=== PATIENT | female | born 1960 | race Caucasian/White ===

== ENCOUNTER 2018-08-13 10:59 | Emergency (ER) | payer MEDICARE, OTHER ==
[~2018-08-13] VITALS: Ht 91.4 cm; Wt 78.9 kg
[~2018-08-13 10:59] MED LIST: AMITRIPTYLINE100 MG PO; BACLOFEN10 MG PO; BACTRIM DS TAB1 EACH PO; CEPHALEXIN500 MG PO; CHLORHEXIDINE473 ML MM; CLOPIDOGREL75 MG PO; FAMOTIDINE20 MG PO; FLUTICASONE PRO16 GM NAS; GABAPENTIN300 MG PO; HYDROCODON-ACE1 EAC8 PO; IBUPROFEN400 MG PO; METFORMIN HCL500 MG PO; NORCO 5-325 TA1 EACH PO; PROAIR HFA8.5 GM INH; SERTRALINE HCL100 MG PO; SIMVASTATIN40 MG PO; SPIRIVA18 MCG INH; SYMBICORT 16010.2 GM INH
--- OUTSIDE RECORDS SUMMARY | 2018-08-13 11:04 | XMS ---
PreManage Notification: BABAR CARROLL Security Front Office Associate Events No recent Security Events currently on file CRITERIA MET - [facility] CARE PROVIDERS Dutch Miranda Practicing Dermatologist/Inspector Bicycle 10/02/2009-Current PHONE: [phone] Dutch Miranda Primary Care 10/02/2009-Current PHONE: [phone] NARCISA ALCANTARA MD [facility] Primary Care Current PHONE: [phone] Niyah has no Care Guidelines for this patient. E.D. VISIT COUNT (12 MO.) 1 DAMIÁN Lopez TOTAL 1 NOTE: Visits indicate total known visits. ED/UCC VISIT TRACKING (12 MO.) 08/13/2018 11:00 DAMI[facility]N Simpson [place] TYPE: Emergency COMPLAINT: - COUGH INPATIENT VISIT TRACKING (12 MO.) No inpatient visits to display in this time frame [email or web address]
== END 2018-08-13 11:52 | disposition home or self-care (01) ==
LOC: ED 10:59
DX: R05 Cough (principal)

== ENCOUNTER 2021-06-07 06:19 | Emergency (ER) | payer MEDICARE, OTHER ==
[~2021-06-07] VITALS: Ht 91.4 cm; Wt 78.4 kg
--- OUTSIDE RECORDS SUMMARY | 2021-06-07 06:20 | XMS ---
PreManage Notification: BABAR CARROLL Security Compressor Repairer Events No recent Security Events currently on file CRITERIA MET - [facility] CARE PROVIDERS MARICRUZ Baker [facility] 08/14/2018-Current PHONE: [phone] Caleb Farrell Uppers Edge Burnisher/Call Or Contact Centre Operator 05/09/2021-Current PHONE: [phone] Niyah has no Care Guidelines for this patient. Yohana VISIT COUNT (12 MO.) Jonathan Lopez TOTAL 1 NOTE: Visits indicate total known visits. ED/UCC VISIT TRACKING (12 MO.) 06/07/2021 06:19 DAMI[facility]N Simpson [place] TYPE: Emergency COMPLAINT: - SOB INPATIENT VISIT TRACKING (12 MO.) No inpatient visits to display in this time frame [email or web address]
[2021-06-07] MEDS ORDERED: PREDNISONE20 MG PO (08:05)
[2021-06-07] MEDS ORDERED: VENTOLIN HFA18 GM INH (08:10)
--- NOTE | 2021-06-09 07:38 | EKG ---
[facility] [address] [place], [place] [address] Signed Normal sinus rhythm Nonspecific ST and T wave abnormality Abnormal ECG No previous ECGs available Confirmed by ANGUS MENDIOLA MD ([id number]) on 06/09/2021 7:38:39 AM Electronically Signed By: ANGUS MENDIOLA MD 06/09/21 0738 PATIENT NAME: BABAR CARROLL AYDIN Electrocardiogram DATE OF : 58 PHYSICIAN: ANGUS MENDIOLA MD REPORT #: [id number] REPORT IS CONFIDENTIAL AND NOT TO BE RELEASED WITHOUT AUTHORIZATION
== END 2021-06-07 13:04 | disposition home or self-care (01) ==
LOC: ED 06:19
DX: J44.1 Chronic obstructive pulmonary disease with (acute) exacerbation (principal); F17.200 Nicotine dependence, unspecified, uncomplicated; Z88.5 Allergy status to narcotic agent; Z79.899 Other long term (current) drug therapy; Z79.84 Long term (current) use of oral hypoglycemic drugs; Z20.822 Contact with and (suspected) exposure to COVID-19
CPT/HCPCS: 71045; 80053; 83735; 83880; 84484; 85025; 93005; 93010; 94640; 96374; 99285-25; C9803; J2930; U0003

== ENCOUNTER 2022-03-05 13:25 | Emergency (ER) | payer MEDICARE, OTHER ==
[~2022-03-05] VITALS: Ht 91.4 cm; Wt 75.2 kg
[~2022-03-05 13:25] MED LIST changes: +PREDNISONE20 MG PO; +VENTOLIN HFA18 GM INH
--- OUTSIDE RECORDS SUMMARY | 2022-03-05 13:28 | XMS ---
PreManage Notification: BABAR CARROLL Security Microbiology Supervisor Events No recent Security Events currently on file CRITERIA MET - [facility] CARE PROVIDERS MARICRUZ Baker [facility] 08/14/2018-Current PHONE: [phone] Caleb Farrell Map Mounter/Liquor Bridge Operator 01/07/2022-Current PHONE: [phone] Niyah has no Care Guidelines for this patient. Yohana VISIT COUNT (12 MO.) Arnoldo Lopez TOTAL 2 NOTE: Visits indicate total known visits. ED/UCC VISIT TRACKING (12 MO.) 03/05/2022 13:27 DAMI[facility]N Simpson [place] TYPE: Emergency COMPLAINT: - LOW O2 SATS, COUGH W/BACK/CHEST PAIN 06/07/2021 06:19 DAMI[facility]N Simpson [place] TYPE: Emergency COMPLAINT: - SOB DIAGNOSES: - skilled nursing (current) use of oral hypoglycemic drugs - Nicotine dependence, unspecified, uncomplicated - Allergy status to narcotic agent - Chronic obstructive pulmonary disease with (acute) exacerbation - Shortness of breath - Other nursing home (current) drug therapy INPATIENT VISIT TRACKING (12 MO.) No inpatient visits to display in this time frame [email or web address]
[2022-03-05] MEDS ORDERED: PREDNISONE20 MG PO (17:06)
[2022-03-05] MEDS ORDERED: DOXYCYCLINE HY100 MG PO (17:40)
--- NOTE | 2022-03-05 20:08 | EKG ---
[facility] [address] [place], [place] [address] Signed Normal sinus rhythm Nonspecific ST abnormality Abnormal ECG When compared with ECG of 07-JUN-2021 06:27, No significant change was found Confirmed by ANGUS MENDIOLA MD ([id number]) on 03/05/2022 8:07:55 PM Electronically Signed By: ANGUS MENDIOLA MD 03/05/222007 PATIENT NAME: BABAR CARROLL Electrocardiogram DATE OF : 58 PHYSICIAN: ANGUS MENDIOLA MD REPORT #: [id number] REPORT IS CONFIDENTIAL AND NOT TO BE RELEASED WITHOUT AUTHORIZATION
== END 2022-03-05 18:40 | disposition home or self-care (01) ==
LOC: ED 13:25
DX: J44.1 Chronic obstructive pulmonary disease with (acute) exacerbation (principal); E11.9 Type 2 diabetes mellitus without complications; E78.5 Hyperlipidemia, unspecified; F17.200 Nicotine dependence, unspecified, uncomplicated; Z20.822 Contact with and (suspected) exposure to COVID-19; Z88.5 Allergy status to narcotic agent; Z79.899 Other long term (current) drug therapy; Z79.84 Long term (current) use of oral hypoglycemic drugs
CPT/HCPCS: 36415; 71045; 80053; 83735; 84484; 85025; 87502; 93005; 93010; 94640; 94761; 96374; 99285-25; 99406; A9270; C9803; J2930; U0003

== ENCOUNTER 2022-06-11 15:36 | Emergency (ER) | payer MEDICARE, OTHER ==
[~2022-06-11] VITALS: Ht 91.4 cm; Wt 75.2 kg
[~2022-06-11 15:36] MED LIST changes: +DOXYCYCLINE HY100 MG PO
--- OUTSIDE RECORDS SUMMARY | 2022-06-11 15:38 | XMS ---
PreManage Notification: BABAR CARROLL Security Caser Up Events No recent Security Events currently on file CRITERIA MET - [facility] CARE PROVIDERS MARICRUZ Baker [facility] 08/14/2018-Current PHONE: [phone] Caleb Farrell Cashier Greeter/Riverine Assault Craft Crewman 05/09/2022-Current PHONE: [phone] Niyah has no Care Guidelines for this patient. Yohana VISIT COUNT (12 MO.) Arnoldo Lopez TOTAL 2 NOTE: Visits indicate total known visits. ED/UCC VISIT TRACKING (12 MO.) 06/11/2022 15:[address] [facility] [place] TYPE: Emergency COMPLAINT: - BODY ACHES, DIARRHEA 03/05/2022 13:27 DAMI[facility]N Simpson [place] TYPE: Emergency COMPLAINT: - LOW O2 SATS, COUGH W/BACK/CHEST PAIN DIAGNOSES: - Nicotine dependence, unspecified, uncomplicated - Nicotine dependence, cigarettes, uncomplicated - Chronic obstructive pulmonary disease with (acute) exacerbation - Type 2 diabetes mellitus without complications - terminal system operator (current) use of oral hypoglycemic drugs - Other watermelon inspector (current) drug therapy - Allergy status to narcotic agent - Cough, unspecified - Hyperlipidemia, unspecified - Contact with and (suspected) exposure to COVID-19 INPATIENT VISIT TRACKING (12 MO.) No inpatient visits to display in this time frame [id number]
== END 2022-06-11 17:20 | disposition left against medical advice (07) ==
LOC: ED 15:36
DX: Z53.21 Procedure and treatment not carried out due to patient leaving prior to being seen by health care provider (principal)
CPT/HCPCS: 87502; U0003

== ENCOUNTER 2023-05-10 10:04 | Emergency (ER) | payer MEDICARE, OTHER ==
[~2023-05-10] VITALS: Ht 91.4 cm; Wt 81.8 kg
--- OUTSIDE RECORDS SUMMARY | 2023-05-10 10:07 | XMS ---
PreManage Notification: BABAR CARROLL Security Airplane Designer Events 1 event(s) in the past 18 months Most recent security events: Elopement at [facility] 06/11/2022 15:37 - Patient eloped before treatment completed. - Patient with suicidal and/or homicidal ideations eloped. - Patient eloped with IV in place. Details: Patient LWBS. CRITERIA MET - [facility] CARE PROVIDERS Caleb Farrell Manager Secondary/In Store Banker 04/09/2023-Current PHONE: [phone] MARICRUZ Baker [facility] 08/14/2018-Current PHONE: [phone] -[place]- Dentist: Neuropsychology Medical Consultant [facility] PHONE: [phone] Niyah has no Care Guidelines for this patient. Yohana VISIT COUNT (12 MO.) 2 DAIMÁN Lopez TOTAL 2 NOTE: Visits indicate total known visits. ED/UCC VISIT TRACKING (12 MO.) 05/10/2023 10:04 DAMI[facility]N Simpson [place] TYPE: Emergency COMPLAINT: - STROKE 06/11/2022 15:[address] [facility] [place] TYPE: Emergency COMPLAINT: - BODY ACHES, DIARRHEA DIAGNOSES: - Procedure and treatment not carried out due to patient leaving prior to being seen by health care provider INPATIENT VISIT TRACKING (12 MO.) No inpatient visits to display in this time frame [email or web address]
[2023-05-10 10:16] LABS: BASOPHILS 0.5 % (0-2); EOSINOPHILS 1.8 % (0-6); HEMATOCRIT 41.3 % (35.0-50.0); HEMOGLOBIN 13.1 g/dL (12.0-18.0); LYMPHOCYTES 21.4 % (24-44); MCH 26.8 (27-36); MCHC 31.7 g/dl (30-36); MCV 84.5 fl (81-99); NEUTROPHILS 71.3 % (39-80); PLATELET COUNT 253 K/uL (140-440); RBC 4.88 M/ul (4.3-5.7); RDW 15.4 (10.5-15.0)
[2023-05-10 10:23] LABS: PARTIAL THROMBOPLASTIN TIME 29.5 Sec (22.9-41.3)
[2023-05-10 10:24] LABS: PROTIME 12.7 Sec (11.2-14.2)
[2023-05-10 10:33] LABS: ALBUMIN 3.1 g/dL (3.4-5.0); ALBUMIN/GLOBULIN RATIO 0.72 (1.1-2.4); ANION GAP 14.7 (7-21); BILIRUBIN, TOTAL 0.3 ng/dL (0.2-1.0); BUN/CREATININE RATIO 12.58 (6.0-28.6); CALCIUM 8.3 mg/dL (8.5-10.1); CREATININE, SERUM 1.43 mg/dL (0.55-1.02); POTASSIUM 3.7 mmol/L (3.5-5.1); PROTEIN, TOTAL 7.4 g/dL (6.4-8.2)
[2023-05-10 11:41] LABS: INFLUENZA B NAA NEGATIVE (NEGATIVE); RESPIRATORY SYNCYTIAL VIR NAA NEGATIVE (NEGATIVE)
[2023-05-10 12:36] VITALS: BP 193/110
--- NOTE | 2023-05-10 22:18 | EKG ---
[facility] [address] [facility] [address] [place] [address] Signed Sinus rhythm with premature supraventricular complexes and with occasional premature ventricular complexes Nonspecific ST and T wave abnormality Abnormal ECG When compared with ECG of 05-MAR-2022 13:35, premature ventricular complexes are now present Prolonged QT Confirmed by Jigna Colorado MD () on 05/10/2023 10:18:11 PM Electronically Signed By: JIGNA COLORADO MD 05/10/23 2218 PATIENT NAME: BABAR CARROLL AYDIN Electrocardiogram DATE OF : 58 PHYSICIAN: JIGNA COLORADO MD REPORT #: [id number] REPORT IS CONFIDENTIAL AND NOT TO BE RELEASED WITHOUT AUTHORIZATION
== END 2023-05-10 12:45 | disposition short-term general hospital (02) ==
LOC: ED 10:04
PROVIDERS: Emergency Medicine
DX: I63.02 Cerebral infarction due to thrombosis of basilar artery (principal); R47.81 Slurred speech; I10 Essential (primary) hypertension; J44.9 Chronic obstructive pulmonary disease, unspecified; E11.51 Type 2 diabetes mellitus with diabetic peripheral angiopathy without gangrene; E78.5 Hyperlipidemia, unspecified; F17.200 Nicotine dependence, unspecified, uncomplicated; Z88.5 Allergy status to narcotic agent; Z79.899 Other long term (current) drug therapy; Z79.84 Long term (current) use of oral hypoglycemic drugs; Z20.822 Contact with and (suspected) exposure to COVID-19
CPT/HCPCS: 36415; 70450; 70496; 70498; 71045; 80053; 85025; 85610; 85730; 87502; 93005; 93010; C9803; J3101; J7060; Q9967; U0002

== ENCOUNTER 2023-07-06 18:16 | Emergency (ER) | payer MEDICARE, OTHER ==
[~2023-07-06] VITALS: Ht 91.4 cm; Wt 65.8 kg
--- OUTSIDE RECORDS SUMMARY | 2023-07-06 18:19 | XMS ---
PreManage Notification: BABAR CARROLL Security Paint Spraying Machine Operator Helper Events 1 event(s) in the past 18 months Most recent security events: Elopement at [facility] 06/11/2022 15:37 - Patient eloped with IV in place. - Patient eloped before treatment completed. - Patient with suicidal and/or homicidal ideations eloped. Details: Patient LWBS. CRITERIA MET - [facility] CARE PROVIDERS Caleb Farrell Certified Registered Nurse Anesthetist/Health Care Administrator 06/09/2023-Current PHONE: [phone] MARICRUZ Baker [facility] 08/14/2018-Current PHONE: [phone] -[place]- Dentist: Livestock Yard Supervisor [facility] PHONE: [phone] CAITLIN CAZARES Nurse Practitioner: Current PHONE: [phone] Niyah has no Care Guidelines for this patient. E.DParvin VISIT COUNT (12 MO.) 2 DAMIÁN Lopez TOTAL 2 NOTE: Visits indicate total known visits. 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
[2023-07-06] MEDS ORDERED: BUPROPION HCL100 M1 PO (18:47)
[2023-07-06] MEDS ORDERED: ATORVASTATIN CA80 MG PO (18:47)
[2023-07-06] MEDS ORDERED: INCRUSE ELLI62.5 MCG INH (18:48)
[2023-07-06] MEDS ORDERED: METHIMAZOLE5 MG PO (18:49)
[2023-07-06] MEDS ORDERED: OMEPRAZOLE20 MG PO (18:49)
--- NOTE | 2023-07-06 19:10 | EKG ---
[facility] [address] [place], [place] [address] Signed Normal sinus rhythm ST abnormality: consider ischemia Confirmed by Pete Espino M.D. ([id number]) on 07/06/2023 7:10:15 PM Electronically Signed By: PETE ESPINO 07/06/23 1910 PATIENT NAME: BABAR CARROLL AYDIN Electrocardiogram DATE OF : 58 PHYSICIAN: PETE ESPINO REPORT #: [id number] REPORT IS CONFIDENTIAL AND NOT TO BE RELEASED WITHOUT AUTHORIZATION
[2023-07-06 19:34] LABS: BASOPHILS 1.1 % (0-2); EOSINOPHILS 2.2 % (0-6); HEMATOCRIT 39.1 % (35.0-50.0); HEMOGLOBIN 12.8 g/dL (12.0-18.0); LYMPHOCYTES 18.8 % (24-44); MCH 27.3 (27-36); MCHC 32.7 g/dl (30-36); MCV 83.5 fl (81-99); NEUTROPHILS 70.9 % (39-80); PLATELET COUNT 294 K/uL (140-440); RBC 4.68 M/ul (4.3-5.7); RDW 17.3 (10.5-15.0)
[2023-07-06 19:47] LABS: BILIRUBIN, URINE NEGATIVE (negative); BLOOD/HGB, URINE LARGE (Negative); KETONE, URINE NEGATIVE (Negative); LEUK ESTERASE, URINE NEGATIVE (negative); NITRITE, URINE NEGATIVE (negative)
[2023-07-06 19:54] LABS: ALBUMIN 2.4 g/dL (3.4-5.0); ALBUMIN/GLOBULIN RATIO 0.56 (1.1-2.4); ANION GAP 14.7 (7-21); BILIRUBIN, TOTAL 0.5 ng/dL (0.2-1.0); BUN/CREATININE RATIO 7.93 (6.0-28.6); CALCIUM 9.7 mg/dL (8.5-10.1); CREATININE, SERUM 1.26 mg/dL (0.55-1.02); POTASSIUM 3.7 mmol/L (3.5-5.1); PROTEIN, TOTAL 6.7 g/dL (6.4-8.2)
[2023-07-06 19:55] LABS: BACTERIA, URINE RARE /hpf (negative); CASTS, URINE NONE SEEN \\lpf; CRYSTALS, URINE NONE SEEN (0-1+); EPITHELIAL CELLS, URINE NS /lpf (0-1+); RED BLOOD CELLS, URINE 21-40 /hpf (0-5); WHITE BLOOD CELLS, URINE 0-1 /HPF (0-5)
[2023-07-06 19:56] LABS: COLLECTION TYPE, URINE CLEAN CATCH; REFLEX CULTURE, URINE No (No)
[2023-07-06 20:06] LABS: AMPHETAMINES, URINE NEGATIVE (NEGATIVE); BARBITURATES, URINE NEGATIVE (NEGATIVE); BENZODIAZEPINE, URINE NEGATIVE (NEGATIVE); BUPRENORPHINE, URINE NEGATIVE (NEGATIVE); CANNABINOID, URINE NEGATIVE (NEGATIVE); COCAINE, URINE NEGATIVE (NEGATIVE); ECSTASY, URINE POSITIVE (NEGATIVE); FENTANYL, URINE NEGATIVE (NEGATIVE); METHADONE, URINE NEGATIVE (NEGATIVE); OPIATES, URINE NEGATIVE (NEGATIVE); OXYCODONE, URINE NEGATIVE (NEGATIVE); PHENCYCLIDINE, URINE NEGATIVE (NEGATIVE)
[2023-07-06 21:08] VITALS: BP 112/79
== END 2023-07-06 21:10 | disposition home or self-care (01) ==
LOC: ED 18:16
PROVIDERS: Internal Medicine
DX: R41.82 Altered mental status, unspecified (principal); F32.9 Major depressive disorder, single episode, unspecified; I10 Essential (primary) hypertension; K21.9 Gastro-esophageal reflux disease without esophagitis; Z86.73 Personal history of transient ischemic attack (TIA), and cerebral infarction without residual deficits; J42 Unspecified chronic bronchitis; E78.5 Hyperlipidemia, unspecified; F17.200 Nicotine dependence, unspecified, uncomplicated; Z88.5 Allergy status to narcotic agent; Z79.899 Other long term (current) drug therapy; Z79.51 Long term (current) use of inhaled steroids
CPT/HCPCS: 36415; 51701; 80053; 80307; 81001; 84484; 85025; 93005; 93010; 99285-25

== ENCOUNTER 2023-07-31 14:48 | Emergency (ER) | payer MEDICARE, OTHER ==
[~2023-07-31] VITALS: Ht 91.4 cm; Wt 62.4 kg
[~2023-07-31 14:48] MED LIST changes: +ATORVASTATIN CA80 MG PO; +BUPROPION HCL100 M1 PO; +INCRUSE ELLI62.5 MCG INH; +METHIMAZOLE5 MG PO; +OMEPRAZOLE20 MG PO
--- OUTSIDE RECORDS SUMMARY | 2023-07-31 14:50 | XMS ---
PreManage Notification: BABAR CARROLL Security Spring Clipper Events 1 event(s) in the past 18 months Most recent security events: Elopement at [facility] 06/11/2022 15:37 - Patient eloped with IV in place. - Patient eloped before treatment completed. - Patient with suicidal and/or homicidal ideations eloped. Details: Patient LWBS. CRITERIA MET - PDMP - [facility] - 2 Visits in 30 Days CARE PROVIDERS Caleb Farrell Interactive Media Designer/Wedger And Gluer 06/09/2023-Current PHONE: [phone] MARICRUZ Baker [facility] 08/14/2018-Current PHONE: [phone] -[place]- Dentist: Grid Casting Machine Operator Helper [facility] PHONE: [phone] CAITLIN CAZARES Nurse Practitioner: Current PHONE: [phone] Niyah has no Care Guidelines for this patient. ECynthia. VISIT COUNT (12 MO.) 3 [facility] TOTAL 3 NOTE: Visits indicate total known visits. ED/UCC VISIT TRACKING (12 MO.) 07/31/2023 14:49 DAIMÁN Simpson [place] TYPE: Emergency COMPLAINT: - BLEEDING NOSE 07/06/2023 18:16 DAMI[facility]N Simpson [place] TYPE: Emergency COMPLAINT: - HALLUCINATIONS DIAGNOSES: - Allergy status to narcotic agent - Altered mental status, unspecified - Essential (primary) hypertension - Gastro-esophageal reflux disease without esophagitis - Hyperlipidemia, unspecified - terminal system operator (current) use of inhaled steroids - Major depressive disorder, single episode, unspecified - Nicotine dependence, unspecified, uncomplicated - Other half-way (current) drug therapy - Personal history of transient ischemic attack (TIA), and cerebral infarction without residual deficits - Unspecified chronic bronchitis - Visual hallucinations 05/10/2023 10:04 DAMIÁN Simpson [place] TYPE: Emergency COMPLAINT: - STROKE DIAGNOSES: - Allergy status to narcotic agent - 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 DIAGNOSES: - Acquired [...] specified chronic obstructive pulmonary disease - stroke [id number]
[2023-07-31] MEDS ORDERED: ASPIRIN81 MG PO (15:17)
[2023-07-31] MEDS ORDERED: LIDOCAINE PAIN1 EACH TD (15:18)
[2023-07-31] MEDS ORDERED: GLUCAGON EMERGEN1 MG INJ (15:18)
[2023-07-31] MEDS ORDERED: INCRUSE ELLI62.5 MCG IH (15:19)
[2023-07-31] MEDS ORDERED: CLARITIN10 M2 PO (15:20)
[2023-07-31] MEDS ORDERED: REGLAN10 MG PO (15:20)
[2023-07-31] MEDS ORDERED: XARELTO2.5 MG PO (15:21)
[2023-07-31] MEDS ORDERED: TRANSDERM-SCOP1 EACH TD (15:21)
[2023-07-31] MEDS ORDERED: METHIMAZOLE5 MG PO (15:23)
[2023-07-31 16:05] VITALS: BP 159/100
== END 2023-07-31 16:05 | disposition home or self-care (01) ==
LOC: ED 14:48
DX: R04.0 Epistaxis (principal); F17.200 Nicotine dependence, unspecified, uncomplicated; J44.9 Chronic obstructive pulmonary disease, unspecified; E11.9 Type 2 diabetes mellitus without complications; E78.5 Hyperlipidemia, unspecified; Z79.51 Long term (current) use of inhaled steroids; Z79.84 Long term (current) use of oral hypoglycemic drugs; Z79.01 Long term (current) use of anticoagulants; Z79.899 Other long term (current) drug therapy; Z79.82 Long term (current) use of aspirin; Z88.5 Allergy status to narcotic agent
CPT/HCPCS: 71045

== ENCOUNTER 2023-08-04 17:26 | Emergency (ER) | payer MEDICARE, OTHER ==
[~2023-08-04] VITALS: Ht 91.4 cm; Wt 62.4 kg
[~2023-08-04 17:26] MED LIST changes: +ASPIRIN81 MG PO; +CLARITIN10 M2 PO; +GLUCAGON EMERGEN1 MG INJ; +INCRUSE ELLI62.5 MCG IH; +LIDOCAINE PAIN1 EACH TD; +REGLAN10 MG PO; +TRANSDERM-SCOP1 EACH TD; +XARELTO2.5 MG PO
--- OUTSIDE RECORDS SUMMARY | 2023-08-04 17:29 | XMS ---
PreManage Notification: BABAR CARROLL Security Bacteriologist Medical Events 1 event(s) in the past 18 months Most recent security events: Elopement at [facility] 06/11/2022 15:37 - Patient eloped with IV in place. - Patient eloped before treatment completed. - Patient with suicidal and/or homicidal ideations eloped. Details: Patient LWBS. CRITERIA MET - PDMP - [facility] - 2 Visits in 30 Days CARE PROVIDERS Caleb Farrell Senior Director Of Strategy/Meat Cutter 06/09/2023-Current PHONE: [phone] MARICRUZ Baker [facility] 08/14/2018-Current PHONE: [phone] -[place]- Dentist: Grain Sampler [facility] PHONE: [phone] CAITLIN CAZARES Nurse Practitioner: Current PHONE: [phone] Niyah has no Care Guidelines for this patient. EWilder VISIT COUNT (12 MO.) [address] [facility] [facility] [facility] TOTAL 4 NOTE: Visits indicate total known visits. ED/UCC VISIT TRACKING (12 MO.) 08/04/2023 17:26 DAMIÁN Simpson [place] TYPE: Emergency COMPLAINT: - NOSE BLEED 07/31/2023 14:49 DAMIÁN Simpson [place] TYPE: Emergency COMPLAINT: - BLEEDING NOSE 07/06/2023 18:16 DAMI[facility]N Simpson [place] TYPE: Emergency COMPLAINT: - HALLUCINATIONS DIAGNOSES: - Allergy status to narcotic agent - Altered mental status, unspecified - Essential (primary) hypertension - Gastro-esophageal reflux disease without esophagitis - Hyperlipidemia, unspecified - FDC (current) use of inhaled steroids - Major depressive disorder, single episode, unspecified - Nicotine dependence, unspecified, uncomplicated - Other nursing home (current) drug therapy - Personal history of [...] Essential (primary) hypertension - Hyperlipidemia, unspecified - parts counterman (current) use of oral hypoglycemic drugs - Nicotine dependence, unspecified, uncomplicated - Other regional intermodal truck driver (current) drug therapy - Slurred speech - Type 2 diabetes mellitus with diabetic peripheral angiopathy without gangrene INPATIENT VISIT TRACKING (12 MO.) 05/10/2023 15:14 [facility] TYPE: Neuro Surgery DIAGNOSES: - Acquired absence [...] specified chronic obstructive pulmonary disease - stroke [id number]
[2023-08-04] MEDS ORDERED: OXYMETAZOLINE HCL 15 ML BTL ONE (17:40)
[2023-08-04] MEDS ORDERED: OXYMETAZOLINE HCL 15 ML BTL NAS ONE (17:45)
[2023-08-04] MEDS ORDERED: TRANEXAMIC ACID IN NACL,ISO-OS 1,000 MG/100 ML PIGGYBACK IV ONE (17:45)
[2023-08-04] MEDS ORDERED: BRILINTA90 MG PO (17:48)
[2023-08-04 18:13] LABS: BASOPHILS 0.8 % (0-2); EOSINOPHILS 1.3 % (0-6); HEMATOCRIT 39.9 % (35.0-50.0); MCH 28.3 (27-36); MCHC 32.6 g/dl (30-36); MCV 86.6 fl (81-99); MONOCYTES 6.3 % (0-12); NEUTROPHILS 78.6 % (39-80); PLATELET COUNT 416 K/uL (140-440); RBC 4.61 M/ul (4.3-5.7); RDW 17.8 (10.5-15.0)
[2023-08-04 18:23] LABS: PARTIAL THROMBOPLASTIN TIME 27.7 Sec (22.9-41.3)
[2023-08-04 18:24] LABS: INR 1.06 (0.80-1.30); PROTIME 13.1 Sec (11.2-14.2)
[2023-08-04 18:26] LABS: ALBUMIN 2.6 g/dL (3.4-5.0); ALBUMIN/GLOBULIN RATIO 0.59 (1.1-2.4); ANION GAP 17.6 (7-21); BILIRUBIN, TOTAL 0.6 ng/dL (0.2-1.0); BUN/CREATININE RATIO 14.06 (6.0-28.6); CALCIUM 9.9 mg/dL (8.5-10.1); CREATININE, SERUM 1.28 mg/dL (0.55-1.02); POTASSIUM 3.6 mmol/L (3.5-5.1)
[2023-08-04 19:00] LABS: ABO B; ANTIBODY SCREEN NEGATIVE; RH NEGATIVE
[2023-08-04 20:27] VITALS: BP 135/98
== END 2023-08-04 20:27 | disposition home or self-care (01) ==
LOC: ED 17:26
PROVIDERS: Emergency Medicine
DX: R04.0 Epistaxis (principal); E11.9 Type 2 diabetes mellitus without complications; J42 Unspecified chronic bronchitis; E78.5 Hyperlipidemia, unspecified; F17.200 Nicotine dependence, unspecified, uncomplicated; F32.A Depression, unspecified; Z88.5 Allergy status to narcotic agent; Z79.02 Long term (current) use of antithrombotics/antiplatelets; Z79.51 Long term (current) use of inhaled steroids; Z79.82 Long term (current) use of aspirin; Z79.899 Other long term (current) drug therapy; Z79.01 Long term (current) use of anticoagulants
CPT/HCPCS: 36415; 80053; 85025; 85610; 85730; 86850; 86900; 86901; A9270

== ENCOUNTER 2023-10-11 09:03 | Inpatient (IN) | payer MEDICARE, OTHER ==
[2023-10-11] VITALS (13 sets, daily range): BP systolic 98–119; BP diastolic 62–93
[~2023-10-11] VITALS: Ht 91.4 cm; Wt 55.3 kg
[~2023-10-11 09:03] MED LIST changes: +ADVAIR 500-501 EACH INH; +ALBUTEROL2.5 MG/3 M INH; +BRILINTA90 MG PO; -CLARITIN10 M2 PO; +CLARITIN10 MG PO; +DULCOLAX10 MG PR; +FLEET ENEMA133 ML PR; -GABAPENTIN300 MG PO; +GLUCAGON EMERGEN1 MG IM; -GLUCAGON EMERGEN1 MG INJ; +MILK OF MA400 MG/5 M PO; +MIRALAX17 GM PO; +NEURONTIN100 MG PO; +ONDANSETRON HCL8 MG PO; +ONDANSETRON ODT8 MG PO
--- OUTSIDE RECORDS SUMMARY | 2023-10-11 09:06 | XMS ---
PreManage Notification: BABAR CARROLL Security Tire Buffer Events 1 event(s) in the past 18 months Most recent security events: Elopement at [facility] 06/11/2022 15:37 - Patient eloped with IV in place. - Patient eloped before treatment completed. - Patient with suicidal and/or homicidal ideations eloped. Details: Patient LWBS. CRITERIA MET - 6 ED Visits in 6 Months - [facility] CARE PROVIDERS Caleb Farrell Insurance And Financial Services Agent/Tilt Tray Driver 08/08/2023-Current PHONE: [phone] MARICRUZ Baker [facility] 08/14/2018-Current PHONE: [phone] -[place]- Dentist: Mill Order Scheduler [facility] PHONE: [phone] CAITLIN CAZARES Nurse Practitioner: Current PHONE: [phone] Niyah has no Care Guidelines for this patient. Yohana VISIT COUNT (12 MO.) [address] [facility] [facility] TOTAL 7 NOTE: Visits indicate total known visits. ED/UCC VISIT TRACKING (12 MO.) 10/11/2023 09:04 DAMIÁN [facility] [place] TYPE: Emergency COMPLAINT: - RECTAL BLEEDING 09/10/2023 10:16 DAMI[facility]N Rose [facility] [place] TYPE: Emergency COMPLAINT: - ABDOMINAL PAIN DIAGNOSES: - Allergy status to narcotic agent - Chronic obstructive pulmonary disease, unspecified - microstrategy bi developer (current) use of aspirin - Nausea with vomiting, unspecified - Nicotine dependence, unspecified, uncomplicated - Other breaker machine operator (current) drug therapy - Type 2 diabetes mellitus without complications - Unspecified abdominal pain 08/29/2023 18:13 DAMIÁN Rose [facility] [place] TYPE: Emergency COMPLAINT: - FEVER 08/04/2023 17:26 DAMIÁN Simpson [place] TYPE: Emergency COMPLAINT: - NOSE BLEED DIAGNOSES: - Allergy status to narcotic agent - Depression, unspecified - Epistaxis - Hyperlipidemia, unspecified - prison (current) use of anticoagulants - prison (current) use of antithrombotics/antiplatelets - microstrategy bi developer (current) use of aspirin - prison (current) use of inhaled steroids - Nicotine dependence, unspecified, uncomplicated - Other [facility] (current) drug therapy - Type 2 diabetes mellitus without complications - Unspecified chronic bronchitis 07/31/2023 14:49 DAMIÁN Simpson [place] TYPE: Emergency COMPLAINT: - BLEEDING NOSE DIAGNOSES: - Allergy status to narcotic agent - Chronic obstructive pulmonary disease, unspecified - Epistaxis - Hyperlipidemia, unspecified - microstrategy bi developer (current) use of anticoagulants - prison (current) use of aspirin - microstrategy bi developer (current) use of inhaled steroids - microstrategy bi developer (current) use of oral hypoglycemic drugs - Nicotine dependence, unspecified, uncomplicated - Other mcc (current) drug therapy - Type 2 diabetes mellitus without complications 07/06/2023 18:16 DAMIÁN Simpson [place] TYPE: Emergency COMPLAINT: - HALLUCINATIONS DIAGNOSES: - Allergy status to narcotic agent - Altered mental status, unspecified - Essential (primary) hypertension - Gastro-esophageal reflux disease without esophagitis - Hyperlipidemia, unspecified - microstrategy bi developer (current) use of inhaled steroids - Major depressive disorder, single episode, unspecified - Nicotine dependence, unspecified, uncomplicated - Other breaker machine operator (current) drug therapy - Personal history of [...] Essential (primary) hypertension - Hyperlipidemia, unspecified - microstrategy bi developer (current) use of oral hypoglycemic drugs - Nicotine dependence, unspecified, uncomplicated - Other breaker machine operator (current) drug therapy - Slurred speech - Type 2 diabetes mellitus with diabetic peripheral angiopathy without gangrene INPATIENT VISIT TRACKING (12 MO.) 08/31/2023 08:40 DAMIÁN Simpson [place] TYPE: Medical Surgical COMPLAINT: - UTI DIAGNOSES: - Acquired absence of other specified parts of digestive tract - Acquired absence of other specified parts of digestive tract - Acute respiratory failure with hypoxia - Allergy status to narcotic agent - Allergy status to narcotic agent - Bacteriuria - Bacteriuria - Chronic obstructive pulmonary disease, unspecified - Chronic obstructive pulmonary disease, unspecified - Essential (primary) hypertension - Essential (primary) hypertension - Hyperosmolality and hypernatremia - Hyperosmolality and hypernatremia - Hypokalemia - Hypokalemia - microstrategy bi developer (current) use of aspirin - microstrategy bi developer (current) use of aspirin - microstrategy bi developer (current) use of inhaled steroids - prison (current) use of inhaled steroids - Nicotine dependence, unspecified, uncomplicated - Nicotine dependence, unspecified, uncomplicated - Other mcc (current) drug therapy - Other mcc (current) drug therapy - Personal history of transient ischemic attack (TIA), and cerebral infarction without residual deficits - Personal history of transient ischemic attack (TIA), and cerebral infarction without residual deficits - Sepsis, unspecified organism - Severe sepsis without septic shock - Thyrotoxicosis, unspecified without thyrotoxic crisis or storm - Thyrotoxicosis, unspecified without thyrotoxic crisis or storm - Urinary tract infection, site not specified 05/10/2023 15:14 [facility] [place] TYPE: Neuro Surgery DIAGNOSES: - Acquired [...] specified chronic obstructive pulmonary disease - stroke [id number]
[2023-10-11] MEDS ORDERED: PANTOPRAZOLE SODIUM 40 MG/10 ML VIAL IV ONE (09:15)
[2023-10-11] MEDS ORDERED: ondansetron HCL 4 MG/2 ML VIAL IV ONE (09:15)
[2023-10-11 09:21] LABS: EOSINOPHILS 0.9 % (0-6); HEMATOCRIT 26.9 % (35.0-50.0); HEMOGLOBIN 8.3 g/dL (12.0-18.0); LYMPHOCYTES 10.4 % (24-44); MCH 27.9 (27-36); MCHC 30.9 g/dl (30-36); MCV 90.5 fl (81-99); MONOCYTES 5.3 % (0-12); NEUTROPHILS 82.4 % (39-80); PLATELET COUNT 690 K/uL (140-440); RBC 2.98 M/ul (4.3-5.7); RDW 17.6 (10.5-15.0)
[2023-10-11 09:35] LABS: ALBUMIN/GLOBULIN RATIO 0.51 (1.1-2.4); ANION GAP 12.9 (7-21); BILIRUBIN, TOTAL 0.3 ng/dL (0.2-1.0); BUN/CREATININE RATIO 20.43 (6.0-28.6); CALCIUM 7.9 mg/dL (8.5-10.1); CREATININE, SERUM 0.93 mg/dL (0.55-1.02); POTASSIUM 3.9 mmol/L (3.5-5.1); PROTEIN, TOTAL 5.9 g/dL (6.4-8.2)
[2023-10-11 09:54] LABS: ABO B; ANTIBODY SCREEN NEGATIVE; RH NEGATIVE
[2023-10-11 09:56] LABS: INR 1.06 (0.80-1.30); PROTIME 13.4 Sec (11.2-14.2)
[2023-10-11 09:58] LABS: PARTIAL THROMBOPLASTIN TIME 28.1 Sec (22.9-41.3)
[2023-10-11] MEDS ORDERED: PANTOPRAZOLE SODIUM 40 MG/10 ML VIAL IV SCH (11:26)
[2023-10-11] MEDS ORDERED: SODIUM CHLORIDE 0.9% 1,000 ML IV SCH ×2 (11:30→15:00)
[2023-10-11] MEDS ORDERED: PHARMACY RENAL DOSE ADJUSTMENT 1 DOSE MISC PO SCH (12:00)
[2023-10-11] MEDS ORDERED: TYLENOL325 MG PO (12:50)
[2023-10-11] MEDS ORDERED: ASPIRIN81 MG PO (12:51)
[2023-10-11] MEDS ORDERED: PULMICORT0.5 MG/2 M INH (12:53)
[2023-10-11] MEDS ORDERED: IPRAT-ALBUT 0.5-3 ML INH (12:59)
[2023-10-11] MEDS ORDERED: ONDANSETRON ODT4 MG PO (13:06)
[2023-10-11] MEDS ORDERED: SERTRALINE HCL100 MG PO (13:07)
--- NOTE | 2023-10-11 13:22 | NUR ---
MED REC COMPLETE
--- NOTE | 2023-10-11 13:24 | NUR ---
PATIENT TAKEN TO GI SUITE FOR UPPER ENDOSCOPY AT 1315.
[2023-10-11] MEDS ORDERED: BUPROPION HCL200 MG PO (13:26)
--- NOTE | 2023-10-11 13:26 | CONS ---
[facility] [address] [place], [place] [address] Signed DATE OF CONSULTATION: 10/11/2023 CHIEF COMPLAINT: Hematemesis. HISTORY OF PRESENT ILLNESS: Babar is a 62-year-old female with long history of peripheral arterial disease and coronary artery disease, on both Brilinta and aspirin. She has come in our ER more than once with nosebleeds. On this occasion, she had some coffee-ground hematemesis earlier this [facility] She was brought to the emergency room for evaluation. She has been a little tachycardic, but her blood pressure has been stable. It looks like her hemoglobin dropped over the last month from 12 down to 8.3. Her BUN is only 19. She also was hypoxic in the ER and was placed on oxygen. Nevertheless, I do not see an EKG nor chest x-ray. She is telling me she has nausea and has to use scopolamine patches. She said she has been vomiting almost every meal for a week. We can see that her gallbladder has been removed previously along with her appendix. She has also had an oophorectomy in the past. She does not seem to describe classic small bowel obstruction. There is always the risks, she could have a gastric outlet obstruction. She did undergo a digital rectal exam and the stool was guaiac positive; however, it was brown in color. She has been admitted to our Internal Medicine Service. I have been asked to see her as a local general surgeon for consideration of upper endoscopy. In the meantime, she has been moved down to our ICU. PAST MEDICAL HISTORY: Peripheral arterial disease, coronary artery disease, COPD, diabetes, chronic bronchitis, hyperlipidemia, depression, thrombotic stroke, thyrotoxicosis, and nosebleeds. PAST SURGICAL HISTORY: Includes bilateral lower extremity amputations, cholecystectomy, appendectomy, and oophorectomy. SOCIAL HISTORY: She quit smoking about a year ago. She does not drink. She has been 12 years at [facility], but now has been transferred to [facility] I believe for higher level of care. Dr. Narcisa Alcantara is her primary care provider in [place], [place]. The extended care facility uses [facility]. Autumn is her friend at . FAMILY HISTORY: She is not aware of any family history. REVIEW OF SYSTEMS: Electronically Signed By: SAMANTHA HIGHTOWER MD 10/11/23 1326 PATIENT NAME: BABAR CARROLL CONSULTATION DATE OF : 58 REPORT #: [id number] PHYSICIAN: SAMANTHA HIGHTOWER MD PCP: NARCISA ALCANTARA MD REPORT IS CONFIDENTIAL AND NOT TO BE RELEASED WITHOUT AUTHORIZATION [facility] [address] [place], [place] [address] Signed We reviewed 10 systems with her and there is no metal in her body and no new additions. ALLERGIES: Morphine causes agitation. MEDICATIONS: Dulcolax, Fleet Enema, milk of magnesia, polyethylene glycol, Zofran, gabapentin, fluticasone, bupropion, atorvastatin, Incruse, omeprazole, aspirin, glucagon, lidocaine, loratadine, Reglan, scopolamine patches, methimazole, Brilinta, Advair, and albuterol. PHYSICAL EXAMINATION: VITAL SIGNS: Her blood pressure is 104/58, heart rate is 105, respiratory rate 18, temperature is 98.1, and she is 100% on room air. Currently, she is 3 feet tall because of amputations. Her weight is 57 kg and a body mass index is falsely high at 69 because of amputations. GENERAL: Babar is a 62-year-old female, lying supine in her ICU bed. Our nurses with this. She is in no acute distress. She is edentulous. She constantly moves her head about and her lips and a little bit difficult to hear her speech. LUNGS: Clear to auscultation bilaterally. She is a little tachycardic without murmur. ABDOMEN: Soft, nontender. RECTAL: Not repeated. LABORATORY DATA: Her white blood count is 10.5 and hemoglobin is 12, it is down to 8.3 over the course of a month or so. Her BUN is only a little high at 19, creatinine is good at 0.93. INR is 1.06, alkaline phosphatase is 138, and albumin is 2.0. IMAGING DATA: EKG is pending. RADIOGRAPHIC STUDIES: Chest x-ray is pending. ASSESSMENT/PLAN: Babar is a 62-year-old female on two anti-platelet drugs for history of vascular disease. She has been with several nosebleeds. She has chronic nausea apparently and has to use scopolamine. She said she has been vomiting for a week with almost every meal. She finally had some coffee-ground hematemesis. She has been admitted to the Internal Medicine Service. I have been asked to see her as a general surgeon on-call. I met with Babar and she tells me she has never had upper or lower endoscopy. I reviewed upper endoscopy with her in detail. There is risk including, but not limited to gas bloating, crampy abdominal pain, bleeding, perforation requiring surgery, and missed diagnosis. We also reviewed the need for monitored anesthesia care given her age and advanced medical issues and her current situation. She has expressed understanding Electronically Signed By: SAMANTHA HIGHTOWER MD 10/11/23 8580 PATIENT NAME: BABAR CARROLL CONSULTATION DATE OF : 58 REPORT #: [id number] PHYSICIAN: SAMANTHA HIGHTOWER MD PCP: NARCISA ALCANTARA MD REPORT IS CONFIDENTIAL AND NOT TO BE RELEASED WITHOUT AUTHORIZATION [facility] [address] [place], [place] [address] Signed and would like to proceed with the upper endoscopy. We will go ahead and call the crew and we should be headed to the endoscopy suite shortly. MD JULISSA Pereira/JOSEFL /[id number] cc: Narcisa Alcantara M.D. Patient Chart Samantha Hightower MD Copies: SAMANTHA HIGHTOWER MD ~ Electronically Signed By: SAMANTHA HIGHTOWER MD 10/11/23 1326 PATIENT NAME: BABAR CARROLL CONSULTATION DATE OF : 58 REPORT #: [id number] PHYSICIAN: SAMANTHA HIGHTOWER MD PCP: NARCISA ALCANTARA MD REPORT IS CONFIDENTIAL AND NOT TO BE RELEASED WITHOUT AUTHORIZATION
[2023-10-11] MEDS ORDERED: fentaNYL citrate 100 MCG/2 ML VIAL ONE (13:34)
[2023-10-11] MEDS ORDERED: DEXAMETHASONE SOD PHOS 4 MG/ML VIAL ONE (13:34)
[2023-10-11] MEDS ORDERED: propofoL 200 MG/20 ML VIAL ONE (13:34)
[2023-10-11] MEDS ORDERED: SUCCINYLCHOLINE IN 0.9% NACL 200 MG/10 ML SYRINGE ONE (13:34)
[2023-10-11] MEDS ORDERED: LIDOCAINE HCL 2% 5 ML SDV ONE (13:34)
[2023-10-11] MEDS ORDERED: ondansetron HCL 4 MG/2 ML VIAL ONE (13:34)
[2023-10-11] MEDS ORDERED: DEXTROSE 5% - LACTATED RINGERS 1,000 ML IV SCH (14:15)
--- NOTE | 2023-10-11 14:16 | NUR ---
10/11/23 1416 Estella Lacey 1400-PATIENT RETURNED TO CCU ROOM 130 DROWSY 6L MASK RR EVEN. PATIENT TRANSFERRED BACK TO BED VIA SLIDING WITH RNS AND MOTORCYCLE ASSEMBLER ASSISTANCE. REPORT TO THIERRY CARRIZALES. PATIENTS HOB ELEVATED. PATIENT PLACED ON RA 100% RR EVEN. PATIENT AWAKE DENIES PAIN OR NAUSEA. NONPRODUCTIVE COUGH. SR. IV WAS LEAKING AT SITE DURING CASE. THIERRY CARRIZALES TO PLACE NEW IV.
--- NOTE | 2023-10-11 14:47 | NUR ---
PATIENT RETURNS FROM PACU AND UPPER SCOPE. PT FOUND TO HAVE SOME ULCERS WHICH WERE NOT ACTIVELY BLEEDING. ATTENDS CHANGED- PT STILL HASN'T VOIDED SINCE ARRIVAL TO HOSPITAL. BLADDER SCANNED FOR 69 ML. NEW IV PLACED IN LEFT FOREARM WITH ULTRASOUND. PT TOLERATED WELL. PT REMAINS ON ROOM AIR AND SP02 IS 98% CURRENTLY. PT DENIES PAIN, NAUSEA, OR ABDOMINAL SYMPTOMS. WILL UPDATE DR. PORTER OF NO URINE OUTPUT. IVF ARE ORDERED TO BE INFUSING AT 75 ML/HR. PT DID RECEIVE APPROX 400 ML DURING PROCEDURE FOR IV INPUT. HR IN THE 90s CURRENTLY, SINUS.
[2023-10-11] MEDS ORDERED: ALBUTEROL/IPRATROPIUM 3 ML NEB INH PRN (16:15)
[2023-10-11] MEDS ORDERED: SERTRALINE HCL 100 MG TAB PO SCH (17:44)
[2023-10-11] MEDS ORDERED: BUPROPION HCL 100 MG PO SCH (17:46)
--- NOTE | 2023-10-11 17:47 | NUR ---
PATIENT USES CALL LIGHT AND STATES SHE WOULD LIKE HER GABAPENTIN. PT FINALLY ABLE TO VOID, ONLY 50 ML AND WAS CONCENTRATED AND CLOUDY. MD CALLED TO UPDATE ON THIS. HOME MEDICATIONS REVIEWED WITH MD AND RESTARTED SOME OF THEM. WILL UPDATE PATIENT ON MEDICATIONS SHE CAN HAVE.
--- NOTE | 2023-10-11 17:59 | NUR ---
BLOOD DRAWN FROM NEW IV SITE THAT WAS PLACED EARLIER TODAY FOR LABS THAT WERE JUST ORDERED - CBC AND BMP. WILL CALL DR. PORTER WITH THESE RESULTS. PT STILL STATES SHE IS HEARING HER CHILDREN AND HER OUTSIDE CALLING HER NAME OVER AND OVER. EXPRESSED THIS FINDING TO DR. PORTER WHEN ON THE PHONE WITH HIM REGARDING HER POTENTIAL HALLUCINATIONS. BED ALARM ON FOR SAFETY.
[2023-10-11 18:00] LABS: BASOPHILS 0.4 % (0-2); EOSINOPHILS 0.1 % (0-6); HEMATOCRIT 22.5 % (35.0-50.0); HEMOGLOBIN 7.2 g/dL (12.0-18.0); LYMPHOCYTES 5.7 % (24-44); MCH 29.1 (27-36); MCHC 31.9 g/dl (30-36); MCV 91.3 fl (81-99); MONOCYTES 1.1 % (0-12); NEUTROPHILS 92.7 % (39-80); PLATELET COUNT 494 K/uL (140-440); RBC 2.46 M/ul (4.3-5.7); RDW 18.1 (10.5-15.0)
[2023-10-11 18:08] LABS: ANION GAP 13.7 (7-21); BUN/CREATININE RATIO 25.8 (6.0-28.6); CALCIUM 7.3 mg/dL (8.5-10.1); CREATININE, SERUM 0.93 mg/dL (0.55-1.02); POTASSIUM 3.7 mmol/L (3.5-5.1)
[2023-10-11 18:43] LABS: IS CROSSMATCH COMPATIBLE
[2023-10-11] MEDS ORDERED: GABAPENTIN 100 MG CAP PO SCH ×2 (18:45→21:00)
--- NOTE | 2023-10-11 19:16 | NUR ---
PATIENT'S BLOOD STARTED AT 1900 AT 120 ML/HR FOR THE FIRST 15 MINS=30 ML. PT TOLERATED WELL WITHOUT ANY ADVERSE REACTIONS. BLOOD NOW INFUSING INTO LEFT FOREARM AT 200 ML/HR. BED ARLM TO REMAIN ON FOR SAFETY.
--- NOTE | 2023-10-11 19:45 | NUR ---
shift report received. patient resting in bed watching tv. denied any concerns. PRBC infusing per order, iv site wnl. Patient reports being hungry; jello and fresh ice water provided. call light in reach. vs stable.
--- NOTE | 2023-10-11 20:15 | NUR ---
PATIENT IS AAOX4. DENIED PAIN OR GI UPSET. VS STABLE. TOLERATING ROOM AIR. ABD SOFT, MILD DISTENTION, PATIENT STATES NORMAL. IV SITE REDRESSED ON LEFT FOREARM TO REDUCE PRESSURE ON INSERTION SITE THAT HAS BEEN CAUSING DISTAL OCCLUSION ALARM ON PUMP. SITE FLUSHES EASILY AND DRAWS BACK BLOOD. CALL LIGHT IN REACH. BED ALARM ACTIVE.
--- NOTE | 2023-10-11 21:00 | NUR ---
PRBC INFUSION COMPLETE. NO SIGN OF REACTION. VS STABLE.
--- NOTE | 2023-10-11 21:42 | NUR ---
SCHEDULED MEDS PROVIDED. PATIENT RESTING IN BED WATCHING TV. DENIED NEED TO VOID. IV FLUIDS PER ORDER, SITE WNL. JUICE AND WATER PROVIDED. LIGHTS DIMMED PER PATIENT REQUEST. CALL LIGHT IN REACH. BED ALARM ACTIVE.
--- NOTE | 2023-10-11 22:58 | NUR ---
PATIENT INCONTINENT OF LARGE AMOUNT OF URINE. PATIENT STATES SHE WAS SLEEPING AND WOKE UP AND NOTICED. PATIENT REPORTS BEING NORMALLY CONTINENT. ATTENDS CHANGED. SOME REDNESS NOTED TO TIARA AREA, ALL BLANCHABLE WITH NO BREAKDOWN OF SKIN. BARRIER CREAM APPLIED. REPOSITIONED PATIENT IN BED. PATIENT DENIED OTHER NEEDS. IV SITE WNL, FLUIDS PER ORDER. CALL LIGHT IN REACH.
[2023-10-12] VITALS (10 sets, daily range): BP systolic 97–133; BP diastolic 57–97
--- NOTE | 2023-10-12 00:56 | NUR ---
patient appears comfortable in bed. eyes closed. vs stable. iv site wnl, ivf per order. call light in reach. attends dry.
--- NOTE | 2023-10-12 02:30 | NUR ---
PATIENT APPEARS RESTFUL. EYES CLOSED. VS STABLE. CALL LIGHT IN REACH. ATTENDS IS DRY. IV SITE WNL, FLUIDS PER ORDER.
--- NOTE | 2023-10-12 04:23 | NUR ---
PATIENT RESTING IN BED. EYES CLOSED. ATTENDS IS DRY. IV SITE WNL, IVF PER ORDER. CALL LIGHT IN REACH. VS STABLE.
[2023-10-12 05:28] LABS: BASOPHILS 0.6 % (0-2); EOSINOPHILS 0.4 % (0-6); HEMATOCRIT 25.4 % (35.0-50.0); HEMOGLOBIN 8.3 g/dL (12.0-18.0); LYMPHOCYTES 24.8 % (24-44); MCH 29.3 (27-36); MCHC 32.7 g/dl (30-36); MCV 89.8 fl (81-99); MONOCYTES 5.6 % (0-12); NEUTROPHILS 68.6 % (39-80); PLATELET COUNT 495 K/uL (140-440); RBC 2.83 M/ul (4.3-5.7); RDW 15.8 (10.5-15.0)
--- NOTE | 2023-10-12 05:30 | NUR ---
PATIENT WOKE EASILY TO VOICE. PATIENT NOTED TO BE INCONTINENT OF LARGE AMOUNT OF URINE. ATTENDS CHANGED, TIARA CARE DONE. PATIENT ABLE TO ROLL IN BED EASILY. PATIENT DENIED GI UPSET OR PAIN. REPOSITIONED IN BED. CALL LIGHT IN REACH.
--- NOTE | 2023-10-12 05:30 | NUR ---
PATIENT INCONTINENT OF LARGE AMOUNT OF URINE. TIARA CARE DONE AND NEW ATTENDS IN PLACE. PATIENT REPOSITIONED IN BED. IV SITE WNL, IV FLUIDS PER ORDER. PATIENT DENIED GI UPSET OR PAIN. NO CONCERNS AT THIS TIME. CALL LIGHT IN REACH.
[2023-10-12 05:42] LABS: ANION GAP 9.9 (7-21); BUN/CREATININE RATIO 21.25 (6.0-28.6); CREATININE, SERUM 0.8 mg/dL (0.55-1.02); POTASSIUM 2.9 mmol/L (3.5-5.1)
[2023-10-12 05:43] LABS: PHOSPHORUS, INORGANIC 3.2 mg/dL (2.5-4.9)
--- NOTE | 2023-10-12 06:37 | NUR ---
DISCUSSED PATIENT'S LABS AND DIET ORDER WITH MD. VERIFIED NEW ORDERS VIA REPEAT BACK METHOD. SEE EMAR.
[2023-10-12] MEDS ORDERED: POTASSIUM CHLORIDE 40 MEQ,LIDOCAINE HCL 1% 40 MG in DEXTROSE 5% 500 ML IV ONE (07:00)
--- NOTE | 2023-10-12 07:30 | NUR ---
REPORT RECEIVED FROM BANDAR CARRIZALES. PATIENT RESTING IN BED, AWAKE WHEN THIS RN ENTERS. STATES NO NEEDS AT THIS TIME. ON ROOM AIR. VSS. WILL CONTINUE PLAN OF CARE.
[2023-10-12] MEDS ORDERED: POTASSIUM CHLORIDE 10 MEQ TABCR PO ONE (08:00)
--- NOTE | 2023-10-12 08:18 | OR ---
[facility] [address] [place], [place] [address] Signed DATE OF OPERATION: 10/11/2023 SURGEON: Samantha Hightower MD PREOPERATIVE DIAGNOSES: 1. Hematemesis. 2. Anemia. POSTOPERATIVE DIAGNOSES: 1. Duodenal ulcer (pyloric bulb). 2. Distal esophageal ulcers. 3. Small hiatal hernia. PROCEDURE: Esophagogastroduodenoscopy with CLOtest and biopsy of the antrum. ESTIMATED BLOOD LOSS: None. INDICATIONS: Babar is a 62-year-old significantly disabled patient with a long history of smoking with peripheral arterial disease, coronary artery disease and COPD. She has bilateral [id number] amputations. She has been in nursing homes now for over 12 years. She was recently transferred from [facility] to [facility] I believe for higher level of care. Apparently, she has some level of chronic nausea and has Zofran and scopolamine patches. She came to our hospital with a scopolamine patch in place. She has been on Brilinta and aspirin because of her history of vascular disease as well as her thrombotic stroke. She has been in our emergency room several times the last few months with nosebleeds. This morning, she coughed up some coffee-grounds emesis. She came to the emergency room for evaluation. Her hemoglobin level dropped from 12 down to 8.3 over about a month and a half. BUN is only slightly up at 19. Her albumin is low at 2.0. On exam, she did have brown stool, but it was guaiac positive. She has been admitted to the Internal Medicine service. I have been asked to see her as a general surgeon on-call. I can see that she is on a number of different inhalers, I am sure some of which contain steroids. It does not appear that she is on any NSAIDs. She tells me last week she has been having trouble with almost every meal with eating and then vomiting after she eats. Here in the hospital and in the ICU, she has been hemodynamically stable. Although her heart rate is a little bit fast at just over 100 beats per minute. She is in no acute distress. I had reviewed all the findings with her. She tells me she has never had upper and lower endoscopy. I explained to her Electronically Signed By: SAMANTHA HIGHTOWER MD 10/12/23 0818 PATIENT NAME: BABAR CARROLL OPERATIVE REPORT DATE OF : 58 REPORT #: [id number] PHYSICIAN: SAMANTHA HIGHTOWER MD PCP: NARCISA ALCANTARA MD REPORT IS CONFIDENTIAL AND NOT TO BE RELEASED WITHOUT AUTHORIZATION [facility] [address] [place], [place] [address] Signed upper endoscopy in detail. We reviewed the risks including, but not limited to gas bloating, crampy abdominal pain, bleeding, perforation requiring surgery, and missed diagnosis. We also reviewed the need for an anesthesia provider to help us with increased monitoring as well as general endotracheal tube intubation to protect her airway with possible blood in the stomach. She had expressed understanding and wished to proceed. PROCEDURE IN DETAIL: Babar was taken into our endoscopy suite and placed in a supine semi-recumbent position. She was placed under general endotracheal tube anesthesia by our nurse pattern changer. A bite block was utilized. The adult gastroscope was introduced and advanced under direct visualization of camera without difficulty. As we came through the pyloric bulb we could easily see her duodenal ulcer with formed but fresh clot at the base. We went down in the duodenum and it was unremarkable. We came back through the pyloric bulb and it is not edematous enough to cause gastric outlet obstruction. Consequently, she should do well with her diet at least a soft diet. We went ahead and took a biopsy of the antrum for CLOtest as well as pathologic review. Nothing particularly concerning in her stomach. Upon retroflexion of scope, she might have just a very small hiatal hernia or at least a short lower esophageal sphincter. The scope was withdrawn up through the area of the GE junction, which was compliant without stricture. There was no gastric or esophageal varices. Basically no disruption to her Z-line. She has no Bradford's mucosa, but we did find several linear ulcers in her distal esophagus. That may be from her chronic vomiting. None of those had any blood clot or bleeding. They all had fibrinous exudate. The middle and upper esophagus were unremarkable. After this, the gas was suctioned out and the gastroscope removed. Babar tolerated the procedure quite well. RECOMMENDATIONS: Babar is going to be returning to her room on the hospitalist service. She will stay on her Protonix b.i.d. She needs to withhold aspirin, NSAIDs, steroid and her Brilinta for at least a couple of weeks. She will need to be on a proton pump inhibitor twice a day for probably eight weeks to allow this to heal. In the meantime, we will start her up on clear liquid diet as well. Samantha Hightower MD ALB/MODL /[id number] Electronically Signed By: SAMANTHA HIGHTOWER MD 10/12/23 0818 PATIENT NAME: BABAR CARROLL OPERATIVE REPORT DATE OF : 58 REPORT #: [id number] PHYSICIAN: SAMANTHA HIGHTOWER MD PCP: NARCISA ALCANTARA MD REPORT IS CONFIDENTIAL AND NOT TO BE RELEASED WITHOUT AUTHORIZATION [address], [place] [address] Signed cc: MD Samantha Anderson MD Copies: NARCISA ALCANTARA MD, ANDREW L MD ~ Electronically Signed By: SAMANTHA HIGHTOWER MD 10/12/23 0818 PATIENT NAME: BABAR CARROLL OPERATIVE REPORT DATE OF : 58 REPORT #: [id number] PHYSICIAN: SAMANTHA HIGHTOWER MD PCP: NARCISA ALCANTARA MD REPORT IS CONFIDENTIAL AND NOT TO BE RELEASED WITHOUT AUTHORIZATION
--- NOTE | 2023-10-12 08:30 | NUR ---
IVF INFUSING. IV IN R AC LEAKING, REMOVED. PT HAS LARGE INCONTINENT URINE IN DEPENDS, LINENS AND GOWN CHANGED, TIARA CARE AND BATH WIPES TO BODY COMPLETE. BARRIER CREAM APPLIED TO TIARA AREA, DRY ATTENDS IN PLACE. REDNESS TO COCCYX BLANCHABLE. PT DENIES GI SYMPTOMS AT THIS TIME. VSS, HRR. BREAKFAST DELIVERED AND PATIENT ASSISTED WITH POSITIONING. CALL LIGHT IN REACH.
--- NOTE | 2023-10-12 09:27 | NUR ---
THIS RN CALLED [facility] TO DISCUSS POTENTIAL DC BACK TO FACILITY TODAY. [facility] NURSE STATES SHORT HANDED TODAY AND TOMORROW WOULD BE OPTIMAL FOR RECEIVING PATIENT BACK. DR PORTER UPDATED. PT POTASSIUM THIS AM 2.9, H+H BELOW ADMITTING LEVEL. BMP ORDERED FOR 1400 TODAY. PT RECEIVING BOTH IV AND PO K REPLACEMENT AT THIS TIME. NO GI SYMPTOMS REPORTED. PT EDUCATED REGARDING PROTONIX USE AND PERIOD OFF OF BLOOD THINNING/ANTIPLATELET AGENTS. PT VERBALIZES UNDERSTANDING, CONTINUE TO REINFORCE.
[2023-10-12] MEDS ORDERED: PANTOPRAZOLE SO40 MG PO (11:13)
[2023-10-12] MEDS ORDERED: ATORVASTATIN 40 MG TAB PO SCH (17:00)
--- NOTE | 2023-10-13 07:22 | EKG ---
[facility] [address] [facility] [place] [address] Signed Sinus tachycardia Nonspecific ST and T wave abnormality Abnormal ECG When compared with ECG of 29-AUG-2023 18:19, premature ventricular complexes are no longer present ST no longer depressed in Lateral leads T wave inversion no longer evident in Inferior leads T wave inversion no longer evident in Anterolateral leads Confirmed by Cheryl Porter MD ([id number]) on 10/13/2023 7:23:09 AM Electronically Signed By: CHERYL PORTER 10/13/23 0722 PATIENT NAME: BABAR CARROLL AYDIN Electrocardiogram DATE OF : 58 PHYSICIAN: CHERYL PORTER REPORT #: [id number] REPORT IS CONFIDENTIAL AND NOT TO BE RELEASED WITHOUT AUTHORIZATION
== END 2023-10-12 12:20 | DRG 378 ==
LOC: ED 09:03 → CCU 11:31
PROVIDERS: Colon & Rectal Surgery; Emergency Medicine; ADMIT Internal Medicine; ATTEND Internal Medicine
PROC: 30233N1 Transfusion of Nonautologous Red Blood Cells into Peripheral Vein, Percutaneous Approach (ICD-10-PCS; 2023-10-11)
PROC: 0DB78ZX Excision of Stomach, Pylorus, Via Natural or Artificial Opening Endoscopic, Diagnostic (ICD-10-PCS; principal; 2023-10-11 13:00)
DX: K26.4 Chronic or unspecified duodenal ulcer with hemorrhage (principal); D62 Acute posthemorrhagic anemia; K22.10 Ulcer of esophagus without bleeding; K44.9 Diaphragmatic hernia without obstruction or gangrene; E11.51 Type 2 diabetes mellitus with diabetic peripheral angiopathy without gangrene; I25.10 Atherosclerotic heart disease of native coronary artery without angina pectoris; J44.9 Chronic obstructive pulmonary disease, unspecified; E78.5 Hyperlipidemia, unspecified; F32.A Depression, unspecified; E87.6 Hypokalemia; Z79.82 Long term (current) use of aspirin; Z79.02 Long term (current) use of antithrombotics/antiplatelets; Z86.73 Personal history of transient ischemic attack (TIA), and cerebral infarction without residual deficits; Z87.891 Personal history of nicotine dependence; Z88.5 Allergy status to narcotic agent; Z79.51 Long term (current) use of inhaled steroids; Z89.612 Acquired absence of left leg above knee; Z89.611 Acquired absence of right leg above knee
CPT/HCPCS: 00813; 36415; 71045; 80048; 80053; 83735; 84100; 85025; 85610; 85730; 86850; 86900; 86901; 86922; 87077; 93005; 93010; 96374; 96375; 99285-25; A9270; C9113; J0330; J1100; J2001; J2405; J2704; J3010; J3480; J3490; J7030; J7060; P9016